=== PATIENT | female | born 2005 | race Caucasian/White ===

== ENCOUNTER 2024-05-27 10:16 | Emergency (ER) | payer OTHER, SELFPAY ==
--- NOTE | 2024-05-27 10:38 | ED_ITS ---
HPI - URI/Sore Throat General Chief Complaint: Upper Respiratory Infection Stated Complaint: test for covid or flu Time Seen by Provider: 05/27/24 10:50 Source: patient Mode of arrival: ambulatory Limitations: no limitations History of Present Illness HPI Narrative: Pili is a 18-year-old female patient presenting to the clinic today with complaints of nasal congestion, cough, left ear pain, and sore throat x1 day. She is requesting testing for COVID, flu, and strep. States there are multiple family member sick home with similar symptoms. MD elicited complaint: sore throat and nasal congestion Related Data Home Medications ?Medication ?Instructions ?Recorded ?Confirmed ?Last Taken ?Type drospirenone 3 mg-ethinyl tablet 05/27/24 Unknown History estradiol 0.02 mg tablet (Lo-Zumandimine (28)) Allergies Allergy/AdvReac Type Severity Reaction Status Date / Time No Known Allergies Allergy Mild Verified 05/27/24 10:55 Review of Systems Review of Systems: Pertinent positives per HPI. Patient denies any fever, chills, rash, headache, visual changes, dizziness, shortness of breath, chest pain, palpitations, nausea, vomiting, diarrhea, constipation, abdominal pain, or any urinary issues. PMFSH Comments At the time of my signature, I reviewed and agree with the nursing past medical, surgical, social, and family history. There is no relevant family history pertinent to the patient complaint. Exam Narrative: General: Well-developed, well nourished, in no apparent distress Head: Normocephalic, atraumatic Eyes: Pupils equally round and reactive to light bilaterally, EOM intact, sclera and conjunctive clear, no discharge, lids normal Ears: TMs intact and congested, ear canals clear, no drainage, grossly hearing normal. Nose: Nares patent, clear nasal discharge, no inflammation, no sinus tenderness. Mouth: Oral pharynx red with bilateral tonsillar enlargement without lesions or masses, good dentition, MMM. Neck: Supple, trachea midline, no enlargement of anterior or posterior cervical nodes, no thyroid masses or goiter palpable. Cardio: Regular rate and rhythm, s1 and s2 normal, no murmur appreciated. Resp: Clear to auscultation bilaterally, no rhonchi, rales, wheezing or rubs Course Course Emergency Course: Portions of this record may have been created with voice recognition software. Level of Care: Express Care Visit Vital Signs Vital signs: Vital Signs Temperature 37.6 C 05/27/24 10:48 Pulse Rate 129 H 05/27/24 10:48 Respiratory Rate 18 05/27/24 10:48 Blood Pressure 119/81 05/27/24 10:48 Pulse Oximetry 100 05/27/24 10:48 Oxygen Delivery Room Air 05/27/24 10:48 Temperature 37.6 C 05/27/24 10:48 Pulse Rate 129 H 05/27/24 10:48 Respiratory Rate 18 05/27/24 10:48 Blood Pressure 119/81 05/27/24 10:48 Pulse Oximetry 100 05/27/24 10:48 Oxygen Delivery Room Air 05/27/24 10:48 Vital signs reviewed MDM - URI/Sore Throat MDM Narrative Medical decision making narrative: At the time of visit patient is resting comfortably on the exam table. Patient appears to be nontoxic. Labs: COVID, influenza, and strep test were all performed in the clinic today. Influenza and strep test were negative. We will send strep for culture. COVID test was positive. Plan: Patient has COVID. Supportive measures were discussed with the patient and they voiced understanding discharge instructions and agrees to treatment plan. Return precautions reviewed Differential Diagnosis Differential diagnosis: Likely upper respiratory infection, otitis media, sinusitis, viral infection, bronchitis, influenza, pharyngitis and other (COVID) Discharge Plan Discharge Clinical Impression: COVID-19 Patient Disposition: Home, Self-Care Condition: Stable Instructions: Antibiotic Form, How to Recover from COVID-19 at Home (ED) Additional Instructions: COVID testing is positive in the clinic today. Strep and influenza testing was negative in the clinic today. May take DayQuil/NyQuil for cold/flu symptoms Increase fluids and stay well hydrated Tylenol/motrin for pain/fever Flonase and OTC antihistamines as directed Vicks vapor rub to open sinuses Sinus rinses for congestion Cepacol spray, cough drops, throat lozenges, warm tea with honey/lemon, gargle salt water to soothe throat BRAT diet for diarrhea Clear liquids x 24 hours then advance as tolerated for nausea/vomiting Go to the ED if you develop a worsening in your condition- high fever not controlled by Tylenol or Motrin, dehydration, weakness, lethargy, shortness of breath, or chest pain. Follow up with your PCP in 3-5 days if symptoms persist. Patient Language: [place]ijani Prescriptions: No Action drospirenone-ethinyl estradiol [Lo-Zumandimine (28)] 3-0.02 mg tablet Follow-up/Referrals: Gloria Crews MD [Primary Care Provider] - Stand Alone Forms: Work/School Release IP Time of Disposition: 11:01 Quality NIHSS Nursing Documentation ED NIHSS nursing documentation: reviewed/agree
[2024-05-27 10:48] VITALS: BP 119/81; PULSE 129; RESP 18; TEMP 37.6; O2SAT 100
[2024-05-27 11:16] LABS: EDCOVIDSCREEN Positive (Negative); EDINFLUASCREEN Negative (Negative); EDINFLUBSCREEN Negative (Negative); EDSTREPNEGPOS1 Negative (Negative)
== END 2024-05-27 11:20 | disposition home or self-care (01) ==
PROVIDERS: Emergency Provider Nurse Practitioner Family; PCP Pediatrics
DX: U07.1 COVID-19 (principal)
CPT/HCPCS: 87081; 87426; 87804; 87880; 99203; G0463